=== PATIENT | male | born 1975 | race African-American/Black ===

== ENCOUNTER 2019-02-13 20:12 | Emergency (ER) | payer OTHER ==
[~2019-02-13] VITALS: Ht 175.3 cm; Wt 88.5 kg
[2019-02-13 20:20] VITALS: BP 139/86
--- NOTE | 2019-02-13 20:29 | PHYS DOC ---
Adult General Chief Complaint Chief Complaint: FINGER INJURY HPI HPI Patient is a 44 year old male who presents to the chief complaint of pain to his right fourth finger. Patient states that he dropped a box on his finger 3 days ago and since then has a raised close the finger has been irritated. Sosa roman patient complains of swelling in the tuft of the right fourth finger. Patient denies fever, chills, nausea, vomiting, diarrhea, dysuria, chest pain, sugars of breath. Review of Systems Review of Systems Patient denies hematemesis, nausea, vomiting, diarrhea, dysuria, chest pain, shortness of breath. complaining of pain to his right fourth finger. Current Medications Current Medications Current Medications Medications (Trade) Dose Ordered Sig/Yesenia Start Time Stop Time Status Last Admin Dose Admin Cephalexin HCl (Keflex) 500 mg 1X ONCE 02/13/19 21:45 02/13/19 21:46 DC 02/13/19 21:57 500 MG Lidocaine HCl (Xylocaine-Mpf 2% Vial) 2 ml 1X ONCE 02/13/19 21:00 02/13/19 21:10 DC Lidocaine/Sodium Bicarbonate (Buffered Lidocaine 1%) 3 ml 1X ONCE 02/13/19 21:15 02/13/19 21:16 DC 02/13/19 21:18 3 ML Allergies Allergies Allergies Coded Allergies Type Severity Reaction Last Updated Verified No Known Drug Allergies 02/13/19 No Physical Exam Physical Exam Constitutional: Well developed, well nourished, no acute distress, non-toxic shanae earance. [] HENT: Normocephalic, atraumatic, bilateral external ears normal, oropharynx moist, no oral exudates, nose normal. [] Eyes: EOMI, conjunctiva normal, no discharge. Lungs & Thorax: No respiratory distress Skin: Warm, dry, no erythema, no rash. [] Extremities: Swelling proximal to the right fourth finger nailbed. Consistent with paronychia Neurologic: Alert and oriented X 3, Psychologic: Affect normal, judgement normal, mood normal. [] Current Patient Data Vital Signs Vital Signs Date Time Temp Pulse Resp B/P (MAP) Pulse Ox O2 Delivery O2 Flow Rate FiO2 02/13/19 20:20 98.1 73 16 139/86 (103) 98 Room Air 98.1 EKG EKG [] Radiology/Procedures Radiology/Procedures HAND RIGHT 3V History: SWELLING AND PUS FILLED AREA ON THE NAIL BED OF THE RIGHT RING FINGER, SMASHED IT ON MONDAY. Mild soft tissue swelling at the distal fourth finger. This is greatest just proximal to the nailbed posteriorly. No evidence of acute fracture. No aggressive bone destruction. Joint spaces and alignment are intact. IMPRESSION: Soft tissue swelling distal fourth finger. Electronically signed by: Darrion Brooks MD (02/13/2019 8:44 PM) [facility] Course & Med Decision Making Course & Med Decision Making Pertinent Imaging studies reviewed. (See chart for details) Ordered l x-ray of the right hand secondary to a box and dropping on his right hand. X-rays negative for fracture open the finger abscess with a scalpel. X-rays negative for acute fracture. IND fourth right finger. Lots of pus came out. We will place dressing around the wound. Patient will be discharged on oral antibiotics. Discussed results and plan of care with patient. Patient is instructed to follow up with PCP in one to 2 days. Appropriate discharge instructions given to patient to return to the ED or to seek immediate medical evaluation. Dragon Disclaimer Dragon Disclaimer This electronic medical record was generated, in whole or in part, using a voice recognition dictation system. Departure Departure Referrals: NON,STAFF (PCP) Scripts Cephalexin (KEFLEX) 250 Mg Capsule 1 CAP PO QID, #40 CAP Prov: AMY WATTS DO 02/13/19 Cephalexin (KEFLEX) 250 Mg Capsule 1 CAP PO QID, #40 CAP Prov: AMY WATTS DO 02/13/19 AMY WATTS DO February 13, 2019 20:29
--- NOTE | 2019-02-13 20:47 | RAD ---
HAND RIGHT 3V History: SWELLING AND PUS FILLED AREA ON THE NAIL BED OF THE RIGHT RING FINGER, SMASHED IT ON MONDAY. Mild soft tissue swelling at the distal fourth finger. This is greatest just proximal to the nailbed posteriorly. No evidence of acute fracture. No aggressive bone destruction. Joint spaces and alignment are intact. IMPRESSION: Soft tissue swelling distal fourth finger. Electronically signed by: Darrion Brooks MD (02/13/2019 8:44 PM) [facility]
[2019-02-13] MEDS ORDERED: LIDOCAINE 2% PF 2ML VIAL. INJ ONE (21:00)
[2019-02-13] MEDS ORDERED: LIDOCAINE WITH 8.4% SOD BICARB 3 ML DISP.SYRIN. ONE (21:06)
[2019-02-13] MEDS ORDERED: LIDOCAINE WITH 8.4% SOD BICARB 3 ML DISP.SYRIN. INJ ONE (21:15)
[2019-02-13] MEDS ORDERED: CEPH-263 PO ×2 (21:29→21:32)
[2019-02-13] MEDS ORDERED: CEPHALEXIN 250 MG CAPSULE. PO ONE (21:45)
== END 2019-02-13 22:00 | disposition home or self-care (01) ==
LOC: ER 20:12
DX: M79.644 Pain in right finger(s) (principal)
CPT/HCPCS: 10060; 73130; 99284